=== PATIENT | male | born 1975 | race Caucasian/White ===

== ENCOUNTER 2020-10-11 06:59 | Emergency (ER) | payer OTHER ==
[~2020-10-11] VITALS: Ht 185.4 cm; Wt 108.9 kg
[2020-10-11] MEDS ORDERED: IV NS 0.9% 1,000 ML BAG IV ONE (07:30)
[2020-10-11 08:03] LABS: BASOPHILS % (AUTO) 0.3 % (0.0-2.0); LYMPHOCYTES # (AUTO) 0.9 /CMM (0.8-4.8); LYMPHOCYTES % (AUTO) 10.4 % (20.0-44.0); MEAN CORPUSCULAR HGB CONC 34 g/dl (31.0-36.0); MEAN CORPUSCULAR VOLUME 108 fL (80-96); MONOCYTES # (AUTO) 0.8 /CMM (0.1-1.30); MONOCYTES % (AUTO) 9.6 % (2.0-12.0); NEUTROPHILS % (AUTO) 79.7 % (43.0-81.0); PLATELET COUNT (AUTO) 150 /CMM (150-450); WHITE BLOOD COUNT (AUTO) 8.8 K/uL (4.3-11.0)
--- NOTE | 2020-10-11 08:07 | NUR ---
[place], from home, found in front of his apartment laying down, admits on taking hallucinogen "mushroom". On room air, breathing evenly and unlabored. Connected to the mobnitor and pulse ox. Alert and oriented x 4, verbally responsive and able to make needs known. Will continue to monitor accordingly.
[2020-10-11 08:18] LABS: RED BLOOD CELL COUNT(AUTO) 1.72 MIL/uL (4.5-6.0)
[2020-10-11 08:19] LABS: HEMOGLOBIN 6.3 g/dL (13.5-17.5)
[2020-10-11 08:20] LABS: HEMATOCRIT 19 % (39-51)
--- NOTE | 2020-10-11 08:20 | NUR ---
urine collected and sent to lab
[2020-10-11 08:22] LABS: ALBUMIN 1.8 g/dL (3.4-5.0); ALCOHOL, BLOOD < 3 mg/dL (0-0); ALKALINE PHOSPHATASE 397 U/L (46-116); BILIRUBIN,DIRECT 2.3 mg/dL (0.0-0.2); BILIRUBIN,TOTAL 2.9 mg/dL (0.2-1.0); CALCIUM, SERUM 7.3 mg/dL (8.5-10.1); CARBON DIOXIDE 22 mmol/L (21-32); CREATININE 1.4 mg/dL (0.6-1.3); GLUCOSE 121 mg/dL (74-106); SODIUM SERUM 121 mmol/L (136-145); TOTAL PROTEIN, SERUM 5.5 g/dL (6.4-8.2); UREA NITROGEN, BLOOD 8 mg/dL (7-18)
[2020-10-11 08:27] LABS: ACETAMINOPHEN 0 ug/ml (10-30); CHLORIDE 78 mmol/L (98-107)
[2020-10-11 08:38] LABS: ALANINE AMINOTRANSFERASE 56 U/L (12-78); ASPARTATE AMINOTRANSFERASE 98 U/L (15-37)
[2020-10-11] MEDS ORDERED: ESCI10TA PO (09:01)
[2020-10-11] MEDS ORDERED: OMEG-72 PO (09:01)
[2020-10-11] MEDS ORDERED: ASPI-1498 PO (09:01)
[2020-10-11] MEDS ORDERED: PANT40TA49 PO (09:01)
--- NOTE | 2020-10-11 09:01 | NUR ---
GABRIELLA REESE, WAITING FOR CALL BACK.
--- NOTE | 2020-10-11 09:02 | NUR ---
MD TO MD IN PROGRESS.
[2020-10-11] MEDS ORDERED: PIOG15TA8 PO (09:03)
[2020-10-11 09:15] LABS: BILIRUBIN,URINE LARGE (NEGATIVE); COLOR,URINE YELLOW (YELLOW); LEUKOCYTE ESTERASE ,URINE Negative (NEGATIVE); NITRITE, URINE Negative (NEGATIVE); PH,URINE 5.5 (5.0-8.0); PROTEIN,URINE 30 mg/dl (NEGATIVE); UGLUCOSE 100 MG/DL mg/dL (NEGATIVE); UROBILINOGEN,URINE >=8.0 EU/dL (0.2)
[2020-10-11 09:26] LABS: RBC,URINE 0-2 /HPF (0-2); WBC,URINE 0-2 /HPF (0-3)
[2020-10-11 09:27] LABS: BACTERIA,URINE Few /HPF (None Seen); SQUAMOUS EPITHELIAL CELL,UR Rare /HPF (None Seen)
--- NOTE | 2020-10-11 10:06 | NUR ---
received a call from [facility] Jaqueline and said to re-assess patient after blood transfusion if patient is stable for transfer. Will call back
[2020-10-11] MEDS ORDERED: MAG HYDROX/AL HYDROX/SIMETH 30 ML UDC PO PRN (10:30)
[2020-10-11] MEDS ORDERED: ONDANSETRON HCL/PF 4 MG/2 ML VIAL IVP PRN (10:30)
[2020-10-11] MEDS ORDERED: IV NS 0.9% 1,000 ML IV SCH (10:30)
[2020-10-11] MEDS ORDERED: HYDROCODONE/APAP 5/325MG TABLET PO PRN (10:30)
[2020-10-11] MEDS ORDERED: MAGNESIUM HYDROXIDE 30 ML UDC PO PRN (10:30)
[2020-10-11] MEDS ORDERED: ACETAMINOPHEN 325 MG TABLET PO PRN (10:30)
[2020-10-11] MEDS ORDERED: Z GUARD REMEDY 2 OZ OINT TP PRN (10:30)
--- NOTE | 2020-10-11 11:07 | NUR ---
received a call from the lab regarding covid 19 result "negative".
[2020-10-11 11:14] LABS: BAND % (MANUAL) 1 % (0.0-5.0); LYMPHOCYTES % (MANUAL) 12 % (16-48); MONOCYTES % (MANUAL) 2 % (0-11.0); NEUTROPHILS % (MANUAL) 85 (42-76)
--- NOTE | 2020-10-11 13:14 | NUR ---
blood transfusion started, no adverse reaction noted at this time, still infusing.
--- NOTE | 2020-10-11 15:14 | NUR ---
Blood transfusion completed, with no adverse reaction noted. Connected to the monitor and pulse ox. Kept comfortable, will continue to monitor accordingly.
--- NOTE | 2020-10-11 16:56 | NUR ---
REJI FROM [facility] CALLED PT GOING TO [facility] ACCETING [facility]. ROOM 207-B PLEASE CALL FOR REPORT DEVIN [phone]. TRASPORT IN BEING ARRANGED AND WILL CALL BACK.
--- NOTE | 2020-10-11 17:41 | NUR ---
Report given to Akira NYE for bozena
--- NOTE | 2020-10-11 17:44 | NUR ---
REJI [facility] CALLED TRANSPORT IS WITH [facility] ETA [phone]
[2020-10-11 18:25] VITALS: BP 101/67
--- NOTE | 2020-10-11 18:26 | NUR ---
patient left via gurney accompanied by 2 emt in no distress going to [facility], denies any pain at this time.
[2020-10-11] MEDS ORDERED: PANTOPRAZOLE 40 MG VIAL IV SCH (21:00)
[2020-10-12] MEDS ORDERED: PANTOPRAZOLE 40 MG TABLET.DR PO SCH (07:30)
[2020-10-12] MEDS ORDERED: ESCITALOPRAM OXALATE (10 MG) 10 MG TABLET PO SCH (09:00)
== END 2020-10-11 18:26 | disposition short-term general hospital (02) ==
LOC: ER 07:04
DX: E87.1 Hypo-osmolality and hyponatremia (principal); E86.1 Hypovolemia; N17.0 Acute kidney failure with tubular necrosis; E87.2 Acidosis; R53.1 Weakness; E43 Unspecified severe protein-calorie malnutrition; E87.6 Hypokalemia; D64.9 Anemia, unspecified; F32.9 Major depressive disorder, single episode, unspecified; F41.9 Anxiety disorder, unspecified; Z20.822 Contact with and (suspected) exposure to COVID-19; R00.0 Tachycardia, unspecified; E11.9 Type 2 diabetes mellitus without complications; Z79.84 Long term (current) use of oral hypoglycemic drugs; Z79.82 Long term (current) use of aspirin; Z79.899 Other long term (current) drug therapy
CPT/HCPCS: 36415; 36430; 70450; 71045; 80048; 80076; 80299; 80307; 80320; 81001; 84484; 85007; 85025; 86850; 86923; 87081; 87426; 93005; 96360; 96361; 99285; C9803; J7030; J7040; J7050; P9016; G0480